=== PATIENT | female | born 1950 | race Caucasian/White ===

== ENCOUNTER → 2017-08-04 | Outpatient (CLI) | payer OTHER ==
[~2017-08-04] MED LIST: METHACHOLINE KIT (J7674) INH ONE
--- NOTE | 2017-08-04 08:54 | PFTRPT ---
Tech: Rafael ZAIDI RRT Age: 67 Sex: Female Race: Height: 67.00 Inches Weight: 127.00 Lbs BSA: 1.67 Diagnosis: R06.02 METHACHOLINE CHALLENGE REPORT: ORDERING PROVIDER: Eddie Kim MD DATE OF SERVICE: 08/04/17 INTERPRETATION: The study was of excellent technical quality. Under protocol, methacholine was administered. Even after a maximal dose of 25 mg (188.875 CDUs) of methacholine , no provocation dose was ever achieved. IMPRESSION: Negative methacholine challenge study. MTDD
== END ==
LOC: M CARPUL 07:31
PROVIDERS: ATTEND Internal Medicine Pulmonary Disease
DX: R06.02 Shortness of breath (principal); R05 Cough
CPT/HCPCS: 94070; 95070; J7674